=== PATIENT | male | born 1980 | race Caucasian/White ===

== ENCOUNTER 2019-01-09 07:57 | Emergency (ER) | payer OTHER ==
[2019-01-09] MEDS ORDERED: MORPHINE SULFATE 4 MG/ML SYRINGE IV STA (08:33)
--- NOTE | 2019-01-09 08:54 | ED ---
General Adult HPI - General Chief complaint: Skin/Abscess/Foreign Body Stated complaint: Male /fever Time Seen by Provider: 01/09/19 08:09 Source: patient Mode of arrival: ambulatory Limitations: no limitations - History of Present Illness Initial comments: Dictation was produced using [employer] dictation software. please excuse any gra mmatical, word or spelling errors. Chief Complaint: 38-year-old male comes disease presents with rectal pain. History of Present Illness: he is 38-year-old male presents today with 4 days of rectal pain. Patient felt a painful mass on his right gluteal. Patient denies ever having had an abscess before. He has a past history of Crohn's disease. He reports that he has well-managed Crohn's disease. Denies any drainage of stool. Patient has been having some constitutional symptoms. He complains of some pain with bowel movement. The ROS documented in this emergency department record has been reviewed and confirmed by me. Those systems with pertinent positive or negative responses have been documented in the HPI. All other systems are other negative and/or noncontributory. PHYSICAL EXAM: General Impression: Alert and oriented x3, not in acute distress HEENT: Normocephalic atraumatic, extra-ocular movements intact, pupils equal and reactive to light bilaterally, mucous membranes moist. Cardiovascular: Heart regular rate and rhythm, S1&S2 audible, no murmurs, rubs o r gallops Chest: Lungs clear to auscultation bilaterally, no rhonchi, no wheeze, no rales Abdomen: Bowel sounds present, abdomen soft, non-tender, non-distended, no organomegaly Musculoskeletal: Pulses present and equal in all extremities, no peripheral edema Motor: no focal deficits noted Neurological: CN II-XII grossly intact, no focal motor or sensory deficits noted Skin: Intact with no visualized rashes Psych: Normal affect and mood Rectal: 3 x 3 cm palpable induration to the 9 o'clock position of the rectum. ED course: 38 yo male presents with rectal pain. As upon arrival shows heart r ate 1 week, worse vital signs within acceptable limits. Patient has history of Crohn's disease.Laboratory evaluation obtained. Leukocytosis of 20.4, metabolic panel is negative. Given patient's history of Crohn's disease who was concerned that patient had a pelvic abscess. CT showed fluid collection in the perianal area without extension into the pelvis. Fluid collection measured 3.0 x 1.5 cm. Incision and drainage was performed with copious amounts of extracted purulent fluid. Wound was packed using 2 inch plain packing strip. Patient given a dose of vancomycin. Patient prescription for Bactrim and Keflex. He is given referral to outpatient gastroenterology for outpatient management of perianal abscess and Crohn's disease. Patient also given referral to PMD. - Related Data Previous Rx's Medication Instructions Recorded Cephalexin [Keflex] 500 mg PO Q6HR 7 Days #28 cap 01/09/19 Sulfamethox-Tmp 800-160Mg [Bactrim 1 tab PO Q12HR 7 Days #14 tab 01/09/19 DS 800-160 mg] Allergies Allergy/AdvReac Type Severity Reaction Status Date / Time No Known Allergies Allergy Verified 01/09/19 08:14 Review of Systems ROS Statement: Those systems with pertinent positive or pertinent negative responses have been documented in the HPI. ROS Other: All systems not noted in ROS Statement are negative. Past Medical History Additional Past Medical History / Comment(s): crohn's History of Any Multi-Drug Resistant Organisms: None Reported Past Surgical History: Hernia Repair Past Psychological History: Bipolar Smoking Status: Current every day smoker Past Alcohol Use History: None Reported Past Drug Use History: Marijuana General Exam Limitations: no limitations Course Vital Signs 01/09/19 01/09/19 01/09/19 08:05 09:53 11:50 Temperature 98.8 F Pulse Rate 108 H 81 76 Respiratory 18 18 18 Rate Blood Pressure 106/70 106/56 111/57 O2 Sat by Pulse 100 99 99 Oximetry Procedures - Incision & Drainage Consent Obtained: verbal consent Site: other (perirectal) Anesthetic Used: lidocaine 1%, with epi Scalpel Used: #15 Needle Aspiration Performed?: Yes Irrigation Performed?: Yes I&D Drainage Obtained: Pus, Blood Packing: Plain Culture Obtained?: No Patient Tolerated Procedure: well Medical Decision Making - Lab Data Result diagrams: 01/09/19 08:34 01/09/19 08:34 Lab Results 01/09/19 01/09/19 Range/Units 08:34 08:34 WBC 20.4 H (3.8-10.6) k/uL RBC 5.22 (4.30-5.90) m/uL Hgb 15.4 (13.0-17.5) gm/dL Hct 44.4 (39.0-53.0) % MCV 85.1 (80.0-100.0) fL MCH 29.5 (25.0-35.0) pg MCHC 34.6 (31.0-37.0) g/dL RDW 14.1 (11.5-15.5) % Plt Count 256 (150-450) k/uL Neutrophils % 83 % Lymphocytes % 6 % Monocytes % 9 % Eosinophils % 0 % Basophils % 1 % Neutrophils # 16.9 H (1.3-7.7) k/uL Lymphocytes # 1.2 (1.0-4.8) k/uL Monocytes # 1.7 H (0-1.0) k/uL Eosinophils # 0.1 (0-0.7) k/uL Basophils # 0.3 H (0-0.2) k/uL Sodium 139 (137-145) mmol/L Potassium 3.4 L (3.5-5.1) mmol/L Chloride 99 (98-107) mmol/L Carbon Dioxide 28 (22-30) mmol/L Anion Gap 12 mmol/L BUN 14 (9-20) mg/dL Creatinine 0.79 (0.66-1.25) mg/dL Est GFR (CKD-EPI)AfAm >90 (>60 ml/min/1.73 sqM) Est GFR (CKD-EPI)NonAf >90 (>60 ml/min/1.73 sqM) Glucose 93 (74-99) mg/dL Calcium 9.1 (8.4-10.2) mg/dL Disposition Clinical Impression: Perianal abscess Disposition: HOME SELF-CARE Condition: Good Instructions (If sedation given, give patient instructions): Abscess Incision and Drainage (DC) Prescriptions: Sulfamethox-Tmp 800-160Mg [Bactrim DS 800-160 mg] 1 tab PO Q12HR 7 Days #14 tab Cephalexin [Keflex] 500 mg PO Q6HR 7 Days #28 cap Is patient prescribed a controlled substance at d/c from ED?: No Referrals: Sacha Ty MD [REFERRING] - 1-2 days Mati Ray MD [STAFF PHYSICIAN] - 1-2 days Time of Disposition: 12:18
[2019-01-09 09:06] LABS: African American GFR (CKD) >90 (>60 ml/min/1.73 sqM); Anion Gap 12 mmol/L; Blood Urea Nitrogen 14 mg/dL (9-20); Calcium 9.1 mg/dL (8.4-10.2); Carbon Dioxide 28 mmol/L (22-30); Chloride 99 mmol/L (98-107); Glucose 93 mg/dL (74-99); Potassium 3.4 mmol/L (3.5-5.1); Sodium 139 mmol/L (137-145)
[2019-01-09 09:12] LABS: Basophils # (A) 0.3 k/uL (0-0.2); Basophils % (A) 1 %; Eosinophils # (A) 0.1 k/uL (0-0.7); Eosinophils % (A) 0 %; HCT 44.4 % (39.0-53.0); HGB 15.4 gm/dL (13.0-17.5); Lymphocytes # (A) 1.2 k/uL (1.0-4.8); Lymphocytes % (A) 6 %; MCH 29.5 pg (25.0-35.0); MCHC 34.6 g/dL (31.0-37.0); MCV 85.1 fL (80.0-100.0); Mean Platelet Volume 7.1; Monocytes # (A) 1.7 k/uL (0-1.0); Monocytes % (A) 9 %; Neutrophils # (A) 16.9 k/uL (1.3-7.7); Neutrophils % (A) 83 %; Platelet Count 256 k/uL (150-450); RBC 5.22 m/uL (4.30-5.90); RDW 14.1 % (11.5-15.5); WBC 20.4 k/uL (3.8-10.6)
--- NOTE | 2019-01-09 09:23 | CT ---
EXAMINATION TYPE: CT abdomen pelvis w con DATE OF EXAM: 01/09/2019 COMPARISON: CT abdomen and pelvis March 07, 2013 HISTORY: History of Crohn's disease with abdominal and particular rectal pain CT DLP: 48.6 mGycm, Automated Exposure Control for Dose Reduction was Utilized. CONTRAST: CT scan of the abdomen and pelvis is performed without oral and with IV Contrast , patient in jected with 100 mL of Isovue 300. FINDINGS: LUNG BASES: No significant abnormality is appreciated. LIVER/GB: No significant abnormality is appreciated. PANCREAS: No significant abnormality is seen. SPLEEN: No significant abnormality is seen. ADRENALS: No significant abnormality is seen. KIDNEYS: No significant abnormality is seen. BOWEL: Suboptimal evaluation of bowel secondary to lack of enteric contrast and patient having little intra-abdominal fat. Stomach is poorly distended and suboptimally evaluated. There is no suspicious small or large bowel dilatation. Terminal ileum is difficult to evaluate near coronal image 35. There is prominent air fluid level in the sigmoid rectal colon axial image 56. There is suggestion of wall thickening and enhancement distal to this. There is suggestion of some wall thickening proximal to t his. PROSTATE/SEMINAL VESICLES: No gross abnormality seen. LYMPH NODES: No greater than 1cm abdominal or pelvic lymph nodes are appreciated. OSSEOUS STRUCTURES: No significant abnormality is seen. OTHER: No significant additional abnormality is seen. IMPRESSION: Suboptimal study due to lack of enteric contrast. No bowel obstruction. Terminal ileum di fficult to evaluate without obvious severe inflammation. Abnormality of sigmoid rectal colon could be on the basis of acute inflammation and/or stricture causing focal dilatation with air-fluid level. D ifferential would include infectious and inflammatory etiologies. There is no free air or adjacent fl uid collection/abscess clearly seen.
[2019-01-09] MEDS ORDERED: LIDOCAINE 1%-EPI 1:100,000 20 ML VIAL SQ STA (10:22)
[2019-01-09] MEDS ORDERED: VANCOMYCIN 1,250 MG in SODIUM CHLORIDE 0.9% 250 ML IVPB STA (11:23)
[2019-01-09 14:17] VITALS: BP 122/56; PULSE 88; RESP 20; TEMP 98
== END 2019-01-09 14:16 | disposition home or self-care (01) ==
LOC: EC 07:57
DX: K61.0 Anal abscess (principal); F17.200 Nicotine dependence, unspecified, uncomplicated; Z87.19 Personal history of other diseases of the digestive system
CPT/HCPCS: 99284; 46050; 96365; 96366; 96375; 36415; 80048; 85025; 87040; 74177; J3370; J2270; Q9967